=== PATIENT | male | born 1980 | race Caucasian/White ===

== ENCOUNTER 2019-03-08 10:03 | Inpatient (IN) | payer SELFPAY ==
[2019-03-08] MEDS ORDERED: methylPREDNISolone SODIUM SUC 125 MG/2 ML VIAL IV ONE (10:12)
[2019-03-08] MEDS ORDERED: IPRATROPIUM/ALBUTEROL 3 ML VIAL NEB ONE (10:12)
[2019-03-08] MEDS ORDERED: KETOROLAC TROMETHAMINE INJ 30 MG/ML VIAL IV ONE (10:12)
--- NOTE | 2019-03-08 10:17 | ED.PDOC ---
History of Present Illness - General Chief Complaint: Chest Pain/WI Stated Complaint: SOB w/chest pain Time Seen by Provider: 03/08/19 10:03 Source: patient, EMS Exam Limitations: no limitations - History of Present Illness Initial Comments: patient comes in today for worsening of shortness of breath with right-sided chest pain. Patient states about 5:00 yesterday had sudden onset of right sided chest pain that was sharp starting at the lower end of his costal angle radiating up to his shoulder and and causing shortness of breath. Patient states he was scared because it felt similar to when he had a pulmonary embolus 2 years ago. At that time he stated he was very hypoxic and shortness of breath was much more severe. Patient was told he would have to be on lifelong blood thinners but he stopped the Coumadin on his own because he thought he was okay. At that time they weren't sure if he had a genetic condition worsens from his smoking and so no definite source for the pulmonary embolus was found. The patient continues to smoke on a daily basis but has not had any recent trauma, injury, or swelling of his lower extremities. Patient today was out working in his yard with shortness of breath got significantly worse. Patient states laying down makes it much worse and sitting up straight helps a little bit but the pain is severe, sharp, and right-sided. He has no diaphoresis, nausea, or vomiting. However, he has had some right upper quadrant abdominal pain with eating over the past couple of days. He denies any fever or chills cough or cold symptoms. Timing/Duration: 24 hours Severity: severe Improving Factors: other - sitting up straight Worsening Factors: eating, movement, other - breathing Associated Symptoms: shortness of breath Allergies/Adverse Reactions: Allergies NO KNOWN ALLERGY Allergy (Verified 03/08/19 10:07) Home Medications: Ambulatory Orders NK 03/08/19 Review of Systems - Review of Systems Constitutional: States: no symptoms reported. Denies: chills, fever, weakness EENTM: States: no symptoms reported. Denies: eye pain, ear pain, nose congestio n, throat pain Respiratory: States: see HPI, short of breath. Denies: cough, wheezing Cardiology: States: chest pain. Denies: edema, palpitations, syncope Gastrointestinal/Abdominal: States: no symptoms reported, other - bloating after eating. Denies: abdominal pain, diarrhea, nausea, vomiting Genitourinary: States: no symptoms reported Musculoskeletal: States: see HPI Past Medical History (General) - Patient Medical History Hx Stroke: No Hx Cardiac Disorders: Yes - P.E. 2 Yrs ago Hx Congestive Heart Failure: No Hx Diabetes: No Hx MRSA: No - Vaccination History Hx Influenza Vaccination: No Hx Pneumococcal Vaccination: No - Social History Hx Tobacco Use: Yes Hx Alcohol Use: Yes Family Medical History - Family History Father Family History: No Known Living Status: Still Living Physical Exam - Physical Exam General Appearance: Anxious, No apparent distress Eye Exam: bilateral normal Ears, Nose, Throat: hearing grossly normal, normal ENT inspection, normal pharynx Neck: non-tender, supple, normal inspection Respiratory: lungs clear, normal breath sounds, no respiratory distress, no accessory muscle use Cardiovascular/Chest: normal peripheral pulses, regular rate, rhythm, no edema, no gallop, no JVD, no murmur Peripheral Pulses: radial,right: 2+, radial,left: 2+ Gastrointestinal/Abdominal: normal bowel sounds, non tender, soft Back Exam: no CVA tenderness Extremity: non-tender Neurologic: alert, oriented x 3 Progress - Progress Progress: 03/08/19 14:13 spoke to search consultant eSlena Santana who then consulted search consultant MD and Pulmonology via phone. Will admit here - Results/Orders Results/Orders: Patient Name: SARAH SUN Gender: Male Date of : 1980 Referring Physician: BRUCE WILLIAM Organization: [facility] Accession Number: [id number] Requested Date: March 08, 2019 10:12 Report Status: Final Requested Procedure: 1 Procedure Description: Chest,1 View Modality: CR Findings Reporting MD: Abhay Mi Fellow MD: Not available Dictation Time: Quality Improvement Consultant: Not available Hem Marker Date: EXAM: Chest,1 View CLINICAL INDICATION: Shortness of breath COMPARISON: There is no previous study for comparison. FINDINGS: A single view of the chest was obtained. The heart size is normal. The pulmonary vascularity is unremarkable. Mild atelectasis versus infiltrate is seen in the right lung base. Minimal linear atelectasis is seen on the left as well. There is a trace right pleural effusion. The lungs are otherwise clear. IMPRESSION: Mild infiltrate and/or atelectasis in the right lung base. Electronically 03/08/19 10:30 EKG STAT 03/08/19 10:57 CTA Chest [CT] Stat Laboratory Results WBC 11.8 K/mm3 (4.8-10.8) H 03/08/19 10:19 RBC 5.69 M/mm3 (4.70-6.10) 03/08/19 10:19 Hgb 16.7 gm/dL (14.0-18.0) 03/08/19 10:19 Hct 50.3 % (42.0-52.0) 03/08/19 10:19 MCV 88.3 fl (80.0-94.0) 03/08/19 10:19 MCH 29.3 pg (27.0-31.0) 03/08/19 10:19 MCHC 33.2 g/dL (33.0-37.0) 03/08/19 10:19 RDW 13.2 % (11.5-14.5) 03/08/19 10:19 Plt Count 282 K/mm3 (130-400) 03/08/19 10:19 MPV 8.1 fl (7.40-10.4) 03/08/19 10:19 Absolute Neuts (auto) 10.00 K/uL (1.8-6.8) H 03/08/19 10:19 Absolute Lymphs (auto) 0.90 K/uL (1.0-3.4) L 03/08/19 10:19 Absolute Monos (auto) 0.90 K/uL (0.2-0.8) H 03/08/19 10:19 Absolute Eos (auto) 0.00 K/uL (0.0-0.4) 03/08/19 10:19 Absolute Basos (auto) 0.00 K/uL (0.0-0.1) 03/08/19 10:19 Neutrophils % 84.2 % (42.0-78.0) H 03/08/19 10:19 Lymphocytes % 7.7 % (20.0-50.0) L 03/08/19 10:19 Monocytes % 7.6 % (2.0-9.0) 03/08/19 10:19 Eosinophils % 0.2 % (1.0-5.0) L 03/08/19 10:19 Basophils % 0.3 % (0.0-2.0) 03/08/19 10:19 PT 10.4 SECONDS (9.0-10.9) 03/08/19 10:19 INR 1.04 (0.9-1.15) 03/08/19 10:19 PTT (SP) 28.1 SECONDS (21.8-31.6) 03/08/19 10:19 D-Dimer, Quantitative 1.79 mg/L FEU (0-0.49) H* 03/08/19 10:19 pCO2 36 mmHg (35-48) 03/08/19 10:12 pO2 70 mmHg (83-108) L 03/08/19 10:12 HCO3 21.1 mmol/L 03/08/19 10:12 ABG pH 7.380 (7.35-7.45) 03/08/19 10:12 ABG O2 Saturation 96.2 % (95.0-99.0) 03/08/19 10:12 ABG Base Excess -2.9 mmol/L 03/08/19 10:12 ABG Deoxyhemoglobin 3.6 % (0.0-5.0) 03/08/19 10:12 Oxyhemoglobin % 92.9 % (94.0-98.0) L 03/08/19 10:12 Carboxyhemoglobin % 2.2 % (0.5-1.5) H 03/08/19 10:12 Methemoglobin % Sat 1.3 % (0.0-1.5) 03/08/19 10:12 Calc Total Hemoglobin 15.4 g/dL (13.5-17.5) 03/08/19 10:12 Sodium 137 mmol/L (135-145) 03/08/19 10:19 Potassium 3.8 mmol/L (3.6-5.0) 03/08/19 10:19 Chloride 102 mmol/L (101-111) 03/08/19 10:19 Carbon Dioxide 23 mmol/L (21-31) 03/08/19 10:19 Anion Gap 15.8 (12-18) 03/08/19 10:19 BUN 11 mg/dL (7-18) 03/08/19 10:19 Creatinine 0.88 mg/dL (0.6-1.3) 03/08/19 10:19 BUN/Creatinine Ratio 12.5 (10-20) 03/08/19 10:19 Random Glucose 96 mg/dL (70-105) 03/08/19 10:19 Serum Osmolality 273.1 mOsm/L (275-295) L 03/08/19 10:19 Calcium 9.8 mg/dL (8.4-10.2) 03/08/19 10:19 Magnesium 1.9 mg/dL (1.8-2.5) 03/08/19 10:19 Total Bilirubin 1.3 mg/dL (0.2-1.0) H 03/08/19 10:19 AST 23 IU/L (10-42) 03/08/19 10:19 ALT 38 IU/L (10-60) 03/08/19 10:19 Alkaline Phosphatase 90 IU/L (42-121) 03/08/19 10:19 Creatine Kinase 59 IU/L (38-174) 03/08/19 10:19 CK-MB (CK-2) 0.6 ng/mL (0.0-3.5) 03/08/19 10:19 CK-MB (CK-2) % 1.02 % (0.0-3.5) 03/08/19 10:19 Troponin I 0.00 ng/mL (0.00-0.08) 03/08/19 10:19 Serum Total Protein 9.0 gm/dL (6.4-8.2) H 03/08/19 10:19 Albumin 4.5 g/dl (3.2-5.5) 03/08/19 10:19 Globulin 4.5 gm/dL (2.3-3.5) H 03/08/19 10:19 Albumin/Globulin Ratio 1.0 (1.1-1.9) L 03/08/19 10:19 Patient Name: SARAH SUN Gender: Male Date of : 1980 Referring Physician: BRUCE WILLIAM Organization: [facility] Accession Number: [id number] Requested Date: March 08, 2019 10:57 Report Status: Final Requested Procedure: 1 Procedure Description: CTA Chest Modality: CT Findings Reporting MD: Juwan Mondragon Fellow MD: Not available Dictation Time: Quality Improvement Consultant: Not available Hem Marker Date: PROCEDURE: CT Angiography Chest With Intravenous Contrast CLINICAL INDICATION: The patient is 38 years old and is Male; sob elevated d dimer hx of PE TECHNIQUE: Axial computed tomographic angiography images of the chest with intravenous contrast using pulmonary embolism protocol. Sagittal and coronal reformatted images were created and reviewed. Sagittal and coronal reformatted images were created and reviewed. This CT exam was performed using one or more of the following dose reduction techniques: automated exposure control, adjustment of the mA and/or kV according to patient size, and/or use of iterative reconstruction technique. MIP reconstructed images were created and reviewed. COMPARISON: No relevant prior studies available. FINDINGS: PULMONARY ARTERIES: There is a large burden of occlusive pulmonary embolus within the RIGHT segmental pulmonary artery branches to the RIGHT lower lobe and RIGHT middle lobe. There is a small amount of clot within the posterior segmental RIGHT lower lobe branch but no clot identified in the RIGHT upper lobe branch and definitively. Subsegmental tertiary vessels are poorly seen. The contrast bolus is suboptimally timed for this evaluation. AORTA: The thoracic aorta is within normal limits without aneurysm or dissection. GREAT VESSELS OF AORTIC ARCH: Great vessels are unremarkable in appearance. LUNGS: There is a small inflammatory focus in the subpleural RIGHT upper lobe on image 34/108 of series 2. There is extensive opacity in the RIGHT lower lobe. This may represent atelectasis or developing areas of pulmonary infarction. There are definitely LEFT lower lobe emboli, which are fairly obscured due to motion artifact and atelectasis securing these vessels. No suspicious pulmonary nodules. PLEURAL SPACE: There is a small RIGHT pleural effusion and [facility] [address] [facility], [address] [place], [place] T [phone] [email or web address] - Report exported on Mar 08, 2019 12:31:87 [id number] - Page 2 of 2 subpulmonic effusion on the RIGHT posteriorly. No pneumothorax. HEART: No pericardial effusion is identified. Heart is normal in size. There are coronary artery calcifications noted. No evidence of RV dysfunction. BONES/JOINTS: No acute fracture. SOFT TISSUES: Unremarkable. LYMPH NODES: There is no mediastinal, or axillary lymphadenopathy. There is mild RIGHT suprahilar confluent soft tissue suggestive of adenopathy. IMPRESSION: 1. There is a large burden of occlusive pulmonary embolus within the RIGHT segmental pulmonary artery branches to the RIGHT lower lobe and RIGHT middle lobe. There is a small amount of clot within the posterior segmental RIGHT lower lobe branch but no clot identified in the RIGHT upper lobe branch and definitively. Subsegmental tertiary vessels are poorly seen. 2. The contrast bolus is suboptimally timed for this evaluation. 3. There is a small inflammatory focus in the subpleural RIGHT upper lobe on image 34/108 of series 2. There is extensive opacity in the RIGHT lower lobe. This may represent atelectasis or developing areas of pulmonary infarction. 4. There are definitely LEFT lower lobe emboli, which are fairly obscured due to motion artifact and atelectasis securing these vessels. - EKG/XRAY/CT EKG: Sinus, no ST T wave changes Comments: HR 70 with normal axis Departure - Departure Clinical Impression: Pulmonary embolism Qualifiers: Pulmonary embolism type: unspecified Chronicity: acute Acute cor pulmonale presence: without acute cor pulmonale Qualified Code(s): I26.99 - Other pulmonary embolism without acute cor pulmonale Disposition: Admit Patient Condition: Good Departure Forms: ED Discharge - Pt. Copy, Patient Portal Self Enrollment Instructions: DI for Chest Pain Referrals: Rahel Pate NP [Primary Care Provider] - 1-2 Weeks Home Medications: Ambulatory Orders NK 03/08/19 Decision To Admit - Decistion To Admit Decision to Admit Reason: Admit from ER Decision to Admit Date: 03/08/19 Decision to Admit Time: 14:14
--- NOTE | 2019-03-08 10:31 | RAD ---
EXAM: Chest,1 View CLINICAL INDICATION: Shortness of breath COMPARISON: There is no previous study for comparison. FINDINGS: A single view of the chest was obtained. The heart size is normal. The pulmonary vascularity is unremarkable. Mild atelectasis versus infiltrate is seen in the right lung base. Minimal linear atelectasis is seen on the left as well. There is a trace right pleural effusion. The lungs are otherwise clear. IMPRESSION: Mild infiltrate and/or atelectasis in the right lung base. Electronically signed by: Abhay Mi MD 03/08/2019 10:29 AM CDT
[2019-03-08] MEDS ORDERED: MORPHINE SULFATE INJ 10 MG/ML VIAL IV ONE (11:00)
--- NOTE | 2019-03-08 12:30 | CT ---
PROCEDURE: CT Angiography Chest With Intravenous Contrast CLINICAL INDICATION: The patient is 38 years old and is Male; sob elevated d dimer hx of PE TECHNIQUE: Axial computed tomographic angiography images of the chest with intravenous contrast using pulmonary embolism protocol. Sagittal and coronal reformatted images were created and reviewed. Sagittal and coronal reformatted images were created and reviewed. This CT exam was performed using one or more of the following dose reduction techniques: automated exposure control, adjustment of the mA and/or kV according to patient size, and/or use of iterative reconstruction technique. MIP reconstructed images were created and reviewed. COMPARISON: No relevant prior studies available. FINDINGS: PULMONARY ARTERIES: There is a large burden of occlusive pulmonary embolus within the RIGHT segmental pulmonary artery branches to the RIGHT lower lobe and RIGHT middle lobe. There is a small amount of clot within the posterior segmental RIGHT lower lobe branch but no clot identified in the RIGHT upper lobe branch and definitively. Subsegmental tertiary vessels are poorly seen. The contrast bolus is suboptimally timed for this evaluation. AORTA: The thoracic aorta is within normal limits without aneurysm or dissection. GREAT VESSELS OF AORTIC ARCH: Great vessels are unremarkable in appearance. LUNGS: There is a small inflammatory focus in the subpleural RIGHT upper lobe on image 34/108 of series 2. There is extensive opacity in the RIGHT lower lobe. This may represent atelectasis or developing areas of pulmonary infarction. There are definitely LEFT lower lobe emboli, which are fairly obscured due to motion artifact and atelectasis securing these vessels. No suspicious pulmonary nodules. PLEURAL SPACE: There is a small RIGHT pleural effusion and subpulmonic effusion on the RIGHT posteriorly. No pneumothorax. HEART: No pericardial effusion is identified. Heart is normal in size. There are coronary artery calcifications noted. No evidence of RV dysfunction. BONES/JOINTS: No acute fracture. SOFT TISSUES: Unremarkable. LYMPH NODES: There is no mediastinal, or axillary lymphadenopathy. There is mild RIGHT suprahilar confluent soft tissue suggestive of adenopathy. IMPRESSION: 1. There is a large burden of occlusive pulmonary embolus within the RIGHT segmental pulmonary artery branches to the RIGHT lower lobe and RIGHT middle lobe. There is a small amount of clot within the posterior segmental RIGHT lower lobe branch but no clot identified in the RIGHT upper lobe branch and definitively. Subsegmental tertiary vessels are poorly seen. 2. The contrast bolus is suboptimally timed for this evaluation. 3. There is a small inflammatory focus in the subpleural RIGHT upper lobe on image 34/108 of series 2. There is extensive opacity in the RIGHT lower lobe. This may represent atelectasis or developing areas of pulmonary infarction. 4. There are definitely LEFT lower lobe emboli, which are fairly obscured due to motion artifact and atelectasis securing these vessels. Electronically signed by: Juwan Mondragon MD 03/08/2019 12:28 PM CDT
[2019-03-08] MEDS ORDERED: ENOXAPARIN SODIUM 100 MG/ML SYG SUBCU ONE ×2 (12:46→20:23)
--- NOTE | 2019-03-08 14:52 | HP ---
SUPERVISING PHYSICIAN: Petr Hunt MD CHIEF COMPLAINT: Chest pain and right-sided back pain. HISTORY OF PRESENT ILLNESS: This is a 38 year-old male who came into the Emergency Room with right-sided chest pain that extended under his arm through to the right side of his back. The pain started yesterday afternoon and he had a sudden onset of right-sided chest pain. It radiated from the costal angle up through the shoulder and he did have some shortness of breath. He became very scared and came to the Emergency Room as he had very similar symptoms about two years ago and was diagnosed with a pulmonary embolism. At that time, he had a hematologic workup and he did not think he was diagnosed with any coagulopathy but he was put on Coumadin which he stopped about a year ago. He said he was feeling fine and he did not continue with his Coumadin therapy. He also smokes about a pack of cigarettes daily. He also was questioning that there may have been a genetic connection to his grandfather as he felt because his symptoms were similar to his when he . He was working out in the yard when the shortness of breath became significantly worse. In the Emergency Room, laboratory was obtained and his electrolytes were basically within normal limits. He has a serum osmolality of 273.1 but total bilirubin of 1.3. His other liver function tests were within normal limits. Serum total protein was 9. WBC 11,800 with a left shift on differential. PT/PTT was within normal limits but D-dimer was elevated at 1.79. Blood gas was PC02 of 36, P02 of 70, bicarb 21, pH 7.38, 02 saturation 96%. His vital signs showed a temperature of 98.1 with heart rate of 81, blood pressure 135/84, respiratory rate 24, 02 saturation 96% on 2 liters nasal cannula. Chest x-ray showed a mild infiltrate and/or atelectasis in the right lung base. Chest thorax CTA shows: 1. There is a large burden of occlusive pulmonary embolus within the right segmental pulmonary artery branches to the right lower lobe and right middle lobe. There is a small amount of clot within the posterior segmental right lower lobe branch but no clot identified in the right upper lobe branch. Subsegmental tertiary vessels are poorly seen. 2. The contrast bolus is suboptimal at the time of this evaluation. 3. There is a small inflammatory focus in the subpleural right upper lobe on image 34/108 of series 2. There is extensive opacity in the right lower lobe. This may represent atelectasis or debilitating area of pulmonary infarction. 4. There are definitely left lower lobe emboli which are barely obscured due to motion artifact and atelectasis obscuring these vessel. I was called for admission and prior to admission I spoke with Dr. Peñaloza, passenger car upholsterer apprentice at [facility] in [place], and he felt that if the patient was started on Lovenox at 1 mg/kg for 24 hours that he could be effectively managed here in our hospital. The patient was given 90 mg of Lovenox subcu in the Emergency Room and was placed on supplemental oxygen. He was also given some Solu-Medrol as well as some Titralac and he did receive a breathing treatment as well as morphine and he was admitted to the Floor in stable condition. PAST MEDICAL HISTORY: 1. Pulmonary emboli. 2. Depression. 3. Gastroesophageal reflux disease. PAST SURGICAL HISTORY: None. CURRENT MEDICATIONS: None. ALLERGIES: No known drug allergies. FAMILY HISTORY: Questionable coagulopathy problems in his grandfather. SOCIAL HISTORY: He lives in [place] with his sister and her children. He smokes approximately one pack of cigarettes per day and drinks quite frequently, almost on a daily basis, 2 to 5 drinks on the weekend and 1 or 2 during the week. REVIEW OF SYSTEMS: GENERAL: Negative for chills, fever or weight changes. HEENT: Negative for vision changes, ear pain, sore throat or sinus symptoms. RESPIRATORY: As per history of present illness. CARDIAC: As per history of present illness. GI: Negative for nausea, vomiting, diarrhea or constipation. GENITOURINARY: Negative for hematuria, dysuria, polyuria. MUSCULOSKELETAL: As per history of present illness. SKIN: Negative for lesions or rashes. NEUROLOGICAL: Negative for seizures, headaches or weakness. PHYSICAL EXAMINATION: VITAL SIGNS: Temperature 97.8, heart rate 72, blood pressure 116/72, respiratory rate 40, 02 saturation 93% on room air. GENERAL: This is a 38 year-old male patient who is lying in his hospital bed. He is in no acute disease. HEENT: Normocephalic and atraumatic. Pupils are equal and reactive. Oropharynx is clear. NECK: Supple without mass. CHEST: Essentially clear to auscultation bilaterally, slightly diminished at the bases. There is equal rise and fall of the chest with inspiration and expiration. CARDIOVASCULAR: Regular rate and rhythm. ABDOMEN: Soft, nondistended, non-tender. Bowel sounds are positive. EXTREMITIES: No cyanosis, clubbing, or edema. NEUROLOGIC: He is awake, alert, and oriented x3. Cranial nerves II through XII are grossly intact. LABORATORY/RADIOLOGY: As per history of present illness. ASSESSMENT: 1. Bilateral pulmonary emboli. There is a questionable area of concern for possible pulmonary infarction on the right side. 2. History of pulmonary emboli 2 years ago with discontinuing his anticoagulant therapy. 3. Gastroesophageal reflux disease. 4. Depression. 5. Tobacco abuse. 6. Frequent ETOH use. PLAN: I have admitted the patient to the hospital. He will continue with one additional dose of Lovenox 1 mg/kg at 11:00 PM. Tomorrow at 9:00 AM he will receive his Xarelto 15 mg b.i.d. I have ordered labs and chest x-ray for in the morning. I will also try to obtain a one-month sample Dosepak of Xarelto for him to take home. It would be beneficial for him to see a dumpster operator as well as a primary care physician and a passenger car upholsterer apprentice. I believe he saw Dr. Lino in [place] at one time. We discussed at length, smoking cessation and cutting back on his alcohol usage, put a nicotine patch on him. He is on no home medications. He has a PPI for ulcer prophylaxis as well as I have given him Tramadol for pain and we will continue to monitor him closely and follow as needed. #[id number] [facility]
[2019-03-08] MEDS ORDERED: SODIUM CHLORIDE 0.9% (FLUSH) 10 ML SYG IV PRN (16:23)
[2019-03-08] MEDS ORDERED: ONDANSETRON INJ 4 MG/2 ML VIAL IV PRN (16:23)
[2019-03-08] MEDS ORDERED: ACETAMINOPHEN 325 MG TAB PO PRN (16:23)
[2019-03-08] MEDS ORDERED: IV SET AND CAP CHANGE INJ INJ SCH (16:30)
[2019-03-08] MEDS: traMADol HCL 50 MG TAB PO PRN ×2 (16:54→23:31)
[2019-03-08] MEDS: NICOTINE PATCH 14 MG TD SCH (17:15)
[2019-03-08] MEDS: SODIUM CHLORIDE 0.9% (FLUSH) 10 ML SYG IV SCH (20:55)
[2019-03-08] MEDS ORDERED: CALCIUM CARBONATE (ANTACID) 500 MG CHEWABLE TAB PO PRN (23:18)
--- NOTE | 2019-03-09 07:21 | RAD ---
CHEST, TWO VIEW, XR 03/09/2019 CLINICAL HISTORY: Pulmonary embolism. COMPARISON: Chest 03/08/2019. TECHNIQUE: Frontal and lateral Chest. FINDINGS: Heart is normal in size. Normal cardiomediastinal contours. Normal pulmonary vessels aorta. There are coarse opacities in the right middle and lower lobe due to atelectasis. There is a small right pleural effusion. There is minimal left lower lobe atelectasis. No pneumothorax. Unremarkable soft tissues and bones. IMPRESSION: 1. Right middle lobe and bilateral lower lobe atelectasis. Minimal right pleural fluid. Electronically signed by: Sirena Hazel DO 03/09/2019 7:19 AM CDT
[2019-03-09] MEDS: SODIUM CHLORIDE 0.9% (FLUSH) 10 ML SYG IV SCH ×2 (08:51→20:41)
[2019-03-09] MEDS: NICOTINE PATCH 14 MG TD SCH (08:51)
[2019-03-09] MEDS ORDERED: RIVAROXABAN 15 MG TAB PO SCH (09:00)
[2019-03-09] MEDS: traMADol HCL 50 MG TAB PO PRN ×2 (12:42→19:54)
[2019-03-09] MEDS: RIVAROXABAN 15 MG TAB PO SCH (17:29)
--- NOTE | 2019-03-09 17:40 | PN ---
DATE: 03/09/19 SUPERVISING PHYSICIAN: Wilman Perea M.D. SUBJECTIVE: He states he feels like he is breathing better than he was, but he still only takes a deep breath and the pain has improved, but he still does have some pain on deep inspiration. OBJECTIVE: Vital signs show blood pressure 110/70, heart rate 82, respiratory rate 18, temperature 97.7, oxygen saturation 95% . GENERAL: Mr. Pires is a 38 year-old male patient in no active distress currently. NEUROLOGIC: The patient is alert and oriented. LUNGS: Clear to auscultation bilaterally. CARDIOVASCULAR: Regular rate and rhythm. Normal S1 and S2. ABDOMEN: Soft. Positive bowel sounds. EXTREMITIES: Lower extremities with no edema. LABORATORY: White count 17.6, hemoglobin 16.4, hematocrit 49.6, platelet count 301. Chemistry unremarkable. Chest x-ray shows right middle lobe and bilateral lower lobe atelectasis. ASSESSMENT: 1. Bilateral pulmonary embolism with history of pulmonary emboli 2 years ago in which he had taken himself off of anticoagulation. 2. Gastroesophageal reflux disease. 3. Depression. 4. Tobacco abuse. 5. Frequent ETOH use. PLAN: At this time the patient is stable and now showing any signs of deterioration. Will continue current plans of anticoagulation with keeping in the hospital 48 to 72 hours to ensure he is not having any complications. Once we are sure he is not going to have any complications during that time frame, we can send him home on anticoagulation. This will be with Xarelto. 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 #[id number] [facility]
[2019-03-10] MEDS: traMADol HCL 50 MG TAB PO PRN (03:59)
--- NOTE | 2019-03-10 07:28 | RAD ---
EXAM DESCRIPTION: Chest,1 View CLINICAL HISTORY: PE, ensure no developing pneumonia COMPARISON: March 09, 2019, March 08, 2019, chest CT March 08, 2019 FINDINGS: The cardiomediastinal silhouette is unremarkable. Again seen is coarse interstitial prominence in the right lung base with a somewhat platelike appearance on the lateral view, stable from prior chest radiographs. No new airspace consolidation or pleural effusion. The lung volumes are within normal range. There is no pneumothorax or acute fracture. IMPRESSION: Abnormal appearance of the right lung base, unchanged from prior exams. Differential considerations include subsegmental atelectasis or pneumonia. No new abnormality. Electronically signed by: Jose Fagan MD 03/10/2019 7:25 AM CDT
[2019-03-10] MEDS: RIVAROXABAN 15 MG TAB PO SCH (08:27)
[2019-03-10] MEDS: NICOTINE PATCH 14 MG TD SCH (08:27)
[2019-03-10] MEDS: SODIUM CHLORIDE 0.9% (FLUSH) 10 ML SYG IV SCH (08:59)
[2019-03-10 09:17] VITALS: O2SAT 96
[2019-03-10 10:39] VITALS: BP 120/75; TEMP 97.8
--- NOTE | 2019-03-10 11:15 | DS ---
SUPERVISING PHYSICIAN: Wilman Perea MD ADMISSION DIAGNOSIS: 1. Bilateral pulmonary embolism. 2. History of pulmonary emboli 2 years ago in which he stopped his anticoagulation. 3. Gastroesophageal reflux disease. 4. Depression. 5. Nicotine dependency. 5. ETOH use. DISCHARGE DIAGNOSIS: 1. Bilateral pulmonary embolism. 2. History of pulmonary emboli 2 years ago in which he stopped his anticoagulation. 3. Gastroesophageal reflux disease. 4. Depression. 5. Nicotine dependency. 5. ETOH use. HOSPITAL COURSE: This is a 38-year-old male patient who came to the Emergency Room with right sided chest pain up into the right arm and shoulder area. He came to the Emergency Room due to being scared because 2 years ago, he had similar symptoms and was diagnosed with pulmonary embolism. At that time, he had a hematological workup, but he did not know the findings of that. He was placed on Coumadin, but stopped it about a year ago. In the Emergency Room, he had a CTA of the chest which showed bilateral pulmonary emboli, see report. Dr. Peñaloza, the power plant assistant in [place], was consulted. He recommended Lovenox 1 mg per kg for 24 hours and then transition to Xarelto. He was placed on Xarelto in the hospital. Dr. Peñaloza's recommendation was to monitor him for 48 hours and then he could go home on anticoagulation. During his time here, he did still have some pleuritic type chest pain which improved with Ultram. His O2 saturations were stable. He denied any dyspnea. Therefore, after 48 hours of observation, the patient was discharged in stable condition on Xarelto starter pack. I spoke with him about followup and he is going to go see Dr. Mosquera at the clinic. He has been instructed to stop smoking. I did prescribe him some Ultram as well for the pleuritic chest pain. I instructed him to come back to the Emergency Room if developed any worsening shortness of breath or other symptoms. I instructed him to not do any strenuous activity at this time. #[id number] [facility]
== END 2019-03-10 10:56 | disposition home or self-care (01) | DRG 176 ==
LOC: ER 10:03 → OBSVTOIN 14:51 → MS 14:51
PROVIDERS: ADMIT Nurse Practitioner Acute Care; ATTEND Nurse Practitioner
DX: I26.99 Other pulmonary embolism without acute cor pulmonale (principal); K21.9 Gastro-esophageal reflux disease without esophagitis; F32.9 Major depressive disorder, single episode, unspecified; T45.516A Underdosing of anticoagulants, initial encounter; F17.210 Nicotine dependence, cigarettes, uncomplicated; Z86.711 Personal history of pulmonary embolism; Z91.128 Patient's intentional underdosing of medication regimen for other reason; Z72.89 Other problems related to lifestyle